=== PATIENT | male | born 1965 | race Caucasian/White ===

== ENCOUNTER 2019-09-12 06:16 | Day surgery (SDC) | payer OTHER, SELFPAY ==
[2019-09-12 06:25] VITALS: BP 143/86; PULSE 89; RESP 17; TEMP 36.1; O2SAT 97
[2019-09-12] MEDS: Lactated Ringers 1,000 ML 80 ML IV (06:48)
--- NOTE | 2019-09-12 07:26 | W.PM.HP.N ---
Date of service: 09/12/19 Time of Service: 07:26 Assessment and Plan Assessment and plan (1) Benign neoplasm of colon: Status: Acute Assessment and plan: I advised colonoscopy. The procedure was described including the risks of perforation with need for surgery or bleeding. Prep instructions discussed. Patient agrees to proceed. History of Present Illness Narrative: 53 y/o male with history of asthma presents for colonoscopy screening pre-op. His last screening was in 2013, which was remarkable for Tubular adenoma. He denies a family history of colon cancer. He denies any changes in bowel habits including bloody or black tarry stools, abdominal pain, diarrhea or constipation. He denies constitutional symptoms. Denies use of marijuana or any other recreational or illegal drugs. Of note he reports that he has diagnosed himself with Aspirin-Exacerbated Respiratory Disease. To help himself over come this, he has been taking 650mg of Aspirin BID. (Total of 1300mg of aspirin x day) Which he has been doing for the last 8-9 months. He denies any issues with easy bleeding or bruising. He denies chest pain, palpitations, dyspnea or dyspnea with exertion. He denies prior history or family history of adverse reactions or complications with anesthesia. Review of Systems Constitutional Constitutional: Denies fatigue and Denies headache(s) Eyes Eyes: Denies change in vision ENT Ears, Nose, Mouth, and Throat: Denies headache(s) and Denies neck mass Cardiovascular Cardiovascular: Denies chest pain, Denies edema, Denies palpitations and Denies dyspnea Respiratory Respiratory: Denies cough, Denies dyspnea and Denies wheezing Gastrointestinal Gastrointestinal: Denies abdominal pain, Denies hematochezia and Denies change in bowel habits Genitourinary Genitourinary: Denies dysuria Musculoskeletal Musculoskeletal: Denies joint swelling Integumentary/Breasts Skin/Breast: Denies new lesions and Denies rash Neurologic Neurologic: Denies confusion, Denies headache(s) and Denies focal weakness Psychiatric Psychiatric: Reports system reviewed and no additional complaints, except as docu and Denies confusion Endocrine Endocrine: Denies fatigue and Denies palpitations Hematologic/Lymphatic Hematologic/Lymphatic: Denies easy bleeding and Denies lymphadenopathy Allergic/Immunologic Allergic/Immunologic: Denies wheezing [facility] Medical History Asthma (Chronic) Surgical History Appendectomy History of colonoscopy (Chronic) Vasectomy Family History Mother No problems noted. Other Macular degeneration, dry Social History Smoking/Tobacco Use Status: Never Alcohol Intake: current Alcohol Intake frequency: 0-2 drinks per day Alcohol type: hard liquor Drug use: Never Substance use type: does not use Household members: none Housing: house Number of Children: 2 Pets and animals: Yes Pets and animals: dog(s) Current gender identity: male What is your relationship status?: Panel score (0-1 are the most socially isolated patients): 0 What type of physical activity do you participate in: walking Duration: 15-30 minutes/day Frequency: 5-6 times per week Seatbelt use: always Working smoke detector in home: Yes Fire extinguisher in home: Yes Carbon monox detector in home: Yes Do you feel safe at home: Yes Do you feel safe in your relationship?: Yes Meds Home Medications and Allergies Home Medications Medication Instructions Recorded Confirmed Type cetirizine 10 mg PO BID tab-cap 03/27/17 09/12/19 History budesonide-formoterol HFA 160 2 puff INHALATION BID #3 inhaler 03/04/19 09/12/19 Rx mcg-4.5 mcg/actuation aerosol inhaler albuterol sulfate 90 mcg/actuation 1 - 2 puff INHALATION Q6H PRN #3 05/13/19 09/12/19 Rx aerosol inhaler units montelukast 10 mg tablet 10 mg PO BID #180 tab 05/13/19 09/12/19 Rx aspirin 325 mg tablet 650 mg PO DAILY tab 08/07/19 09/12/19 History bisacodyl 5 mg tablet,delayed 5 mg PO ONCE #4 tab 08/07/19 09/12/19 Rx release polyethylene glycol 3350 17 238 g PO ONCE #238 gm 08/07/19 09/12/19 Rx gram/dose oral powder fluticasone propionate [Flonase 1 spray INTRANASAL BID 09/10/19 09/12/19 History Allergy Relief] Allergies Allergy/AdvReac Type Severity Reaction Status Date / Time NSAIDS (Non-Steroidal Allergy Severe Other (See Verified 09/12/19 06:47 Anti-Inflamma Comment) seasonal allergies Allergy Uncoded 09/12/19 06:47 Exam Const General: healthy appearing and not in acute distress Nutritional Appearance: well nourished Orientation: oriented x3 [facility] Head: normal to inspection Eyes Sclera: sclerae normal Pupils: PERRL Neck Neck: no lymphadenopathy Thyroid: thyroid normal Carotids: no bruits Lymphatic: no lymphadenopathy noted Chest Breast inspection: normal inspection of the axillae Resp Effort & Inspection: normal respiratory effort Auscultation: clear to auscultation bilaterally and no wheezes Cardio Rate: regular rate Rhythm: regular rhythm Pulses: dorsalis pedis pulses present GI Inspection: non-distended Palpation: soft, no hepatosplenomegaly, no hernias and nontender Skin General skin exam: no rashes or lesions noted Neuro General: alert Cognition: normal cognition Extrem General: normal to inspection Psych Affect: normal affect Attitude: cooperative Results Last Vital Signs Temp 97.0 F L 09/12/19 06:25 Pulse 89 09/12/19 06:25 Resp 17 09/12/19 06:25 BP 143/86 H 09/12/19 06:25 Pulse Ox 97 09/12/19 06:25
--- NOTE | 2019-09-12 08:10 | W.PM.DSUDISC ---
Discharge Plan Disposition Patient Disposition: HOME Condition: Good Discharge Details Reason For Visit: Colonoscopy Attending Provider: Sara Sweet Primary Care Provider: Rosanna Blanco Home Meds and New Rx's Prescriptions: Continued montelukast 10 mg tablet 10 mg PO BID Qty: 180 RF: 3 albuterol sulfate [Proventil HFA] 90 mcg/actuation HFA aerosol inhaler 1 - 2 puff Inhalation Q6H PRN Qty: 3 RF: 3 aspirin 325 mg tablet 650 mg PO DAILY RF: 0 cetirizine 10 MG tablet 10 mg PO BID RF: 0 Symbicort 160-4.5 mcg/actuation HFA aerosol inhaler 2 puff Inhalation BID Qty: 3 RF: 3 fluticasone propionate [Flonase Allergy Relief] 50 mcg/actuation [place],Suspension 1 spray INTRANASAL BID RF: 0 Discontinued polyethylene glycol 3350 17 gram/dose powder 238 g PO ONCE Qty: 238 RF: 0 bisacodyl [Dulcolax (bisacodyl)] 5 mg tablet,delayed release (DR/EC) 5 mg PO ONCE Qty: 4 RF: 0 Discharge Instructions Additional Instructions: Findings: Your colonoscopy showed diverticulosis. Follow up: Plan for colonoscopy in 5-7 years or sooner if symptoms arise. Please call if you develop: fevers >101.5 Nausea or Vomiting Abdominal pain that is not transient DAY SURGERY UNIT POST COLONOSCOPY INSTRUCTIONS 1. Because there will be medication in your system for the next 24 hours, you may feel a little sleepy. Your coordination will be affected. Therefore: a. Do not drive or operate dangerous equipment for 24 hours. b. Do not drink alcohol beverages for 24 hours (not even beer). c. Plan to go home and rest for the day. 2. Generally there are no restrictions on your activity after a day or so has gone by, but you may feel a bit fatigued for a few days. 3 After you arrive home you may have a light meal and return to a normal diet as you can tolerate it without feeling sick to your stomach. 4. After surgery, you may feel pain or discomfort. This should be only transient, but if it persists please contact your doctor. 5. If there are any questions regarding the findings of your procedure, please feel free to contact your doctor. 6. If you are unable to contact your doctor with a problem, contact the hospital at [phone]. 7. Continue all your regular medications unless directed otherwise. I understand the above instructions and have no questions. Signature of Patient or Responsible Adult Escort Date/Time Name of Responsible Adult Escort Signature of Nurse Date/Time Activity:: Activity as Tolerated Diet:: As Tolerated Discharge Orders Discharge Orders: Discharge Order (Routine); Ordered 09/12/19 Ordered By: Sara Sweet DS: Diagnosis Discharge Diagnosis (1) Benign neoplasm of colon: Status: Acute (2) Diverticulosis: Status: Acute
[2019-09-12 08:36] VITALS: BP 128/86; PULSE 73; RESP 17; TEMP 36.3; O2SAT 96
--- NOTE | 2019-09-12 11:10 | COLE_ITS ---
DATE OF PROCEDURE: September 12, 2019 PREOPERATIVE DIAGNOSIS: History of colon polyps. POSTOPERATIVE DIAGNOSIS: Mild diverticulosis. PROCEDURE: Colonoscopy. SURGEON: Sara Sweet M.D. ANESTHESIA: General. INDICATIONS: This is a 54-year-old man whose last screening colonoscopy in 2013 showed a tubular lorie noma. He is asymptomatic and has no family history of colon cancer. PROCEDURE: He was placed in the left Tiwari position. Propofol was titrated to sedation. Digital rec will examination revealed no abnormalities. The scope was advanced to the cecum without difficulty. The ileocecal valve and appendiceal orifice were clearly identified. His prep was excellent. The sc ope was slowly withdrawn with no abnormalities seen within the ascending, transverse or descending co shiva. In the sigmoid region he had mild diverticular change. The rectum was normal, including on ret roflex view. He tolerated the procedure well and was stable to recovery. With his history of polyps he should have a colonoscopy again in 5 to 7 years. cc: Rosanna Blanco M.D.
== END 2019-09-12 08:53 | disposition home or self-care (01) ==
PROVIDERS: PCP Internal Medicine; Visit Provider Surgery
PROC: 0DJD8ZZ Inspection of Lower Intestinal Tract, Via Natural or Artificial Opening Endoscopic (ICD-10-PCS; CPT 45378; principal; 2019-09-12 07:30)
DX: Z12.11 Encounter for screening for malignant neoplasm of colon (principal); K57.30 Diverticulosis of large intestine without perforation or abscess without bleeding; Z86.010 Personal history of colon polyps
CPT/HCPCS: 45378; NC

== ENCOUNTER 2022-01-05 02:55 | Outpatient (CLI) | payer OTHER, SELFPAY ==
[2022-01-05 11:23] LABS: Calculated LDL 118 mg/dL (<100); Cholesterol 180 mg/dL (<200); HDL Cholesterol 53 mg/dL (40-60); Triglyceride 49 mg/dL (<150)
[2022-01-06 10:28] LABS: Hepatitis C Ab w Rflx HCV PCR Negative (Negative)
== END 2022-01-05 02:56 | disposition home or self-care (01) ==
LOC: LBO 02:55
PROVIDERS: PCP Internal Medicine; Visit Provider Internal Medicine
DX: Z13.220 Encounter for screening for lipoid disorders (principal); Z11.59 Encounter for screening for other viral diseases
CPT/HCPCS: 36415; 80061; 86803

== ENCOUNTER 2023-06-26 03:52 | Outpatient (CLI) | payer OTHER, SELFPAY ==
[2023-06-26 08:35] LABS: Abs Immature Grans 0.04 10^3/uL (0.0-0.06); HGB 13.5 g/dL (13.5-17.5); MCH 31.1 pg (27.0-33.0); MCHC 32.1 % (32.0-36.0); MCV 97 fL (80-95); MPV 9.1 fL (8.0-11.0); Platelet Count 297 10^3/uL (130-400); RBC 4.34 10^6/uL (4.36-5.78); RDW 11.9 % (11.8-14.1); RDW-SD 42.5 fL
[2023-06-26 08:57] LABS: Absolute Basophil Count 0.08 10^3/uL (0.0-0.2); Absolute Eosinophil Count 0.24 10^3/uL (0.0-0.7); Absolute Lymphocyte Count 2.92 10^3/uL (1.2-3.4); Absolute Monocyte Count 0.32 10^3/uL (0.1-0.8); Absolute Neutrophil Count 4.35 10^3/uL (1.2-6.7); Atypical Lymphocytes % 0; Bands % 0; Diff Comment Manual Differential; RBC Morphology Normal
[2023-06-26 09:17] LABS: ALT 23 U/L (16-63); AST 11 U/L (15-37); Albumin 3.3 g/dL (3.4-5.0); Alkaline Phosphatase 60 U/L (46-116); Anion Gap 7.4 mmol/L (3-11); BUN 20 mg/dL (7-18); Bilirubin, Total 0.3 mg/dL (0.2-1.0); CO2 29.6 mmol/L (21.0-32.0); CREATININE 1.1 mg/dL (0.70-1.30); Calcium 8.6 mg/dL (8.5-10.1); Calculated LDL 120 mg/dL (<100); Chloride 106 mmol/L (98-107); Cholesterol 176 mg/dL (<200); Estimated GFR 77.81 (mL/min/1.73m2); Glucose 103 mg/dL (74-106); HDL Cholesterol 33 mg/dL (40-60); Potassium 4.2 mmol/L (3.5-5.1); Sodium 143 mmol/L (136-145); Total Protein 6.7 g/dL (6.4-8.2); Triglyceride 119 mg/dL (<150)
== END 2023-06-26 03:53 | disposition home or self-care (01) ==
LOC: LBO 03:52
PROVIDERS: PCP Nurse Practitioner; Visit Provider Nurse Practitioner
DX: E78.5 Hyperlipidemia, unspecified (principal); J45.40 Moderate persistent asthma, uncomplicated
CPT/HCPCS: 36415; 80053; 80061; 85025

== ENCOUNTER 2024-03-18 05:55 | Outpatient (CLI) | payer OTHER, SELFPAY ==
[2024-03-18 10:53] LABS: ESR 4 mm/hr (0-20)
[2024-03-18 17:23] LABS: Rheumatoid Factor <8.6 IU/mL (<12.0)
[2024-03-19 08:42] LABS: Cyclic Citrullinated Peptide <2.5 U/mL (<5.0)
[2024-03-19 09:13] LABS: Lyme Ab w Rflx to Lyme Confirm Positive (Negative)
[2024-03-19 11:09] LABS: Lyme IgG Ab Positive (Negative); Lyme IgM Ab Positive (Negative)
[2024-03-19 14:12] LABS: ANA Interpretation Negative (Negative)
[2024-03-20 13:43] LABS: Anaplasma phagocytophilum Negative (Negative); B. miyamotoi PCR Negative (Negative); Babesia divergens/MO-1 Negative (Negative); Babesia duncani Negative (Negative); Babesia microti Negative (Negative); Ehrlichia chaffeensis Negative (Negative); Ehrlichia ewingii/canis Negative (Negative); Ehrlichia muris eauclairensis Negative (Negative)
== END 2024-03-18 05:56 | disposition home or self-care (01) ==
LOC: LBO 05:55
PROVIDERS: PCP Nurse Practitioner; Visit Provider Nurse Practitioner
DX: M25.59 Pain in other specified joint (principal)
CPT/HCPCS: 36415; 85652; 86200; 86617; 87798; 86038; 86140; 86431; 86618

== ENCOUNTER 2024-10-03 12:12 | Day surgery (SDC) | payer OTHER, SELFPAY ==
--- NOTE | 2024-10-02 20:33 | W.COLOREPORT ---
Date of service: 10/03/24 Time of Service: 15:36 Colonoscopy Report Date of procedure: 10/03/24 Pre-op diagnosis general: T. adenoma in 2014/divertic Post-op diagnosis procedure note: other Surgeon: Rosanna Alcaal Anesthesia Type: General:No Airway Estimated blood loss (mL): 3 Pathology: other Complications: None Disposition: same day Prep: Miralax/Dulcolax Retraction Time: 32 Procedure Description: After informed consent was obtained, explaining risks of the procedure, including but not limits to: bleeding, infections, complications of anesthesia, perforations (which may require antibiotics and /or surgery and stay in the hospital), and abdominal pain/cramping. The patient was taken to the procedure room and placed in a left decubitous position. Monitors were applied and a time out was done. The patients name, date of , procedure, allergies to medications and metal in their body was reviewed. The patient was then sedated. Once sedated and comfortable a rectal exam was done. External exam was normal. Internal exam revealed a normal sphincter tone and no palpable masses. The prostate no masses palpated today. The previously lubricated Olympus scope was then introduced (see RN notes for scope number) and retrofelexed. No internal hemorrhoids were identified. The scope was then advanced to the cecum without difficulty. The TI and appendiceal orifice were identified. The scope was then slowly retracted over minutes back into the rectum. Polyps: He has 3 flat polyps in the cecum. 1 is 1 cm in size and is removed with a cold snare. A clip was placed across the defect. Another is 0.75 cm in size and flat. This is removed with a cold biting forcep. A third is 0.5 cm in size and flat and was removed with cold biting forcep. A flat, .75cm polyp was found at 70cm. This was removed with a cold snare. A flat, .5cm polyp was found at 40cm.. All of the specimen was retrieved. This will be sent to pathology. There is no bleeding noted from the polypectomy site. Diverticula: pt had a moderate amount of small mouthed diverticula in the sigmoid colon. There were no signs of active bleeding or infection. The mucosa is pink and healthy w/ a normal vascular pattern. The scope was removed, and the patient was woken up and taken back to Same day surgery in stable condition. The prep is also quite poor, so any lesions less than 5 mm may have been missed. The patient tolerated the procedure well and there were no immediate complications. Follow up: The patient should follow up in 3-5years, path pd, unless they develop changes in bowel habits or other new gastrointestinal complaints. [place] Bowel Prep [place] Bowel Prep Right Colon: 1 Left Colon: 2 Transverse Colon: 1 Total Score: 4
--- NOTE | 2024-10-02 20:34 | PDOC.DSDIS_ITS ---
Date of service: 10/03/24 Time of Service: 15:37 Discharge Plan Disposition Patient Disposition: Home Condition: Good Discharge Details Reason For Visit: colon scope Attending Provider: Rosanna Alcala Primary Care Provider: Shy Del Valle Home Meds and New Rx's Prescriptions: Continued albuterol sulfate 90 mcg/actuation HFA aerosol inhaler 1 - 2 puff Inhalation Q6H PRN Qty: 1 12RF Rx Instructions: use as needed for shortness of breath cetirizine 10 MG tablet 10 mg PO BID fluticasone propionate [Flonase Allergy Relief] 50 mcg/actuation spray,suspension 1 spray INTRANASAL BID Qty: 9.9 1RF Qvar RediHaler 80 mcg/actuation HFA aerosol breath activated 1 inh inhalation BID Qty: 3 3RF Rx Instructions: May increase to 2 inhalations BID during allergy season. Rinse mouth after use. montelukast 10 mg tablet 10 mg PO DAILY Qty: 90 3RF Discontinued bisacodyl [Dulcolax (bisacodyl)] 5 mg tablet,delayed release (DR/EC) 5 mg PO ONCE Qty: 4 0RF Rx Instructions: Take per colonoscopy instructions provided by ordering providers office polyethylene glycol 3350 17 gram/dose powder 17 g PO ONCE Qty: 238 0RF Rx Instructions: Take per colonoscopy instructions provided by ordering providers office Discharge Instructions Additional Instructions: DSU Colonoscopy Post- Op Instructions Instructions for Everyone who is given Anesthesia: For your safety, please do the following for the next twenty-four (24) hours: *Do Not operate a motor vehicle (car, truck, motorcycle, etc.) *Do Not drink alcoholic beverages or use any recreational drugs for the first 24 hours or while taking pain medications. The medications in your body may have a reaction that can be dangerous. *Do Not make any important decisions or sign any important papers. Findings: Multiple polyps and diverticula -Make sure you are moving your bowels on a regular basis and not straining. If you are having problems with constipation or straining to move your bowels and we recommend you start a fiber product daily such as Metamucil Follow up: My office will send you a letter in 2 to 3 weeks time with the results of the polyps and when we want to you to repeat the colonoscopy, most likely 3 to 5 years time. 1. No lifting over 20 pounds or strenuous activity for the first 24 hours after your procedure. After 24 hours there are no restrictions on your activity but you may feel fatigued for a few days. 2. After you arrive home you may have a light meal and return to your normal diet as you can tolerate it without feeling sick to your stomach. 3. You may have a bloated, gaseous feeling in your belly (abdomen) after a colonoscopy. Passing gas and belching will help. Walking or lying down on your left side with your knees flexed may relieve the discomfort. Call the office at [phone] (Office) or [phone] (Hospital) right away if you notice any of the following: a.Vomiting of blood or ?coffee ground stools?. b.Rectal bleeding 1Tbsp, blood clots or continuous bleeding. c.Severe belly (abdominal) pain. d.A hard distended belly (abdomen) and an inability to pass gas. 4. Please don?t expect to have a normal BM (bowel movement) for 2-3 days after your procedure. 5. If there are questions regarding the findings of your procedure, please contact your doctor 6. If you are unable to contact your doctor with a problem, contact the hospital at [phone]. 7. Continue all your regular medications unless directed otherwise. I understand the above instructions and have no questions. Signature of Patient or Adult Escort Name of Responsible Adult Escort Signature of Nurse Date/Time Stand Alone Forms: Anesthesia Discharge , Kin Ahumada (DSU) Activity:: see sbove Diet:: see above Discharge Orders Discharge Orders: Discharge Order (Routine); Ordered 10/03/24 Ordered By: Rosanna Alcala DS: Diagnosis Discharge Diagnosis (1) Elevated blood pressure reading: Status: Acute (2) Diverticulosis: Status: Acute (3) Benign neoplasm of colon: Status: Acute Asessment and Plan: The patient is seen and examined after their colonoscopy.? The patient has been able to pass gas.? They are not having abdominal pain.? They have been able to tolerate liquids and a snack.? They do not have any nausea or vomiting.? They are not having any chest pain or shortness of breath.??? They are not having any rectal bleeding. Their vital signs have been stable-see nursing notes. We discussed findings during their colonoscopy, and any biopsies that were done/polyps that were removed. The patient will be sent a letter with any biopsy results, and when to repeat the colonoscopy.-see discharge instructions. Patient was given explicit instructions to follow-up regarding colonoscopy-refer to discharge instructions.? We reviewed resumption of medications. Patient verbalized understanding and discharged in stable and satisfactory condition- See nursing notes. (4) Aspirin-exacerbated respiratory disease (AERD): Status: Acute (5) Moderate persistent asthma, uncomplicated: Status: Acute
[2024-10-03 12:26] VITALS: BP 134/80; PULSE 71; RESP 18; TEMP 36.6; O2SAT 96
[2024-10-03] MEDS: Normal Saline Flush 10 ML SYR IV (12:43)
--- NOTE | 2024-10-03 13:05 | ANES.PREOP_ITS ---
General Info Date of Service Date Performed: 10/03/24 Height: 5 ft 11 in Weight: 89.8 kg Body Mass Index (BMI): 27.6 Surgical Procedure: Operation Date: 10/03/24 12:35 Proposed Procedure Side Surgeon galdino Alcala, DO Meds Allergies and Home Medications Allergies Allergy/AdvReac Type Severity Reaction Status Date / Time NSAIDS (Non-Steroidal Allergy Severe Asthma Verified 10/03/24 12:24 Anti-Inflamma attack, GI pain, hives seasonal allergies Allergy Intermediate hay fever Uncoded 10/03/24 12:24 Home Medication ?Medication ?Instructions ?Recorded cetirizine 10 mg tablet 10 mg PO BID 03/27/17 fluticasone propionate 50 1 spray intranasal BID #9.9 mL 11/10/19 mcg/actuation nasal spray,suspension (Flonase Allergy Relief) beclomethasone dipropionate 80 1 inh inhalation BID #3 units 06/12/24 mcg/actuation HFA breath activated aerosol (Qvar RediHaler) montelukast 10 mg tablet 10 mg PO DAILY #90 tabs 06/12/24 albuterol sulfate 90 mcg/actuation 1 - 2 puff inhalation Q6H PRN #1 08/26/24 aerosol inhaler units Current Visit Medications: Current Medications Generic Name Dose Route Start Last Admin Trade Name Freq PRN Reason Stop Dose Admin Hyoscyamine Sulfate 0.125 mg 10/03/24 08:38 Hyoscyamine 0.125 Mg Sl/Oral/Chew SL 11/02/24 08:37 DIRECTED PRN IV Miscellaneous Supplies 1 each 10/03/24 06:00 Iv Access IV 10/03/24 23:59 DIRECTED ANNALISA Ondansetron HCl 4 mg 10/03/24 08:38 Ondansetron 4 Mg/2 Ml Vial IVP 11/02/24 08:37 Q4H PRN PRN Nausea / Vomiting Sodium Chloride 0 ml 10/03/24 06:00 10/03/24 12:43 Normal Saline Flush 10 Ml Syr IV 10/03/24 23:59 10 ml PRN PRN Administration Sodium Chloride 0 ml 10/03/24 06:00 Normal Saline 10 Ml Vial IJ 10/03/24 23:59 DIRECTED PRN Sterile Water 0 ml 10/03/24 06:00 Water,Injection,Sterile 10 Ml Vial IJ 10/03/24 23:59 DIRECTED PRN PFSH Active Problems Active Problems: Problem Status Onset Code Aspirin-exacerbated respiratory disease (AERD) Acute J45.909, J33.9, Z88.6 Moderate persistent asthma, uncomplicated Acute J45.40 Anosmia Acute R43.0 Diverticulosis Acute K57.90 Allergic rhinitis due to pollen Acute 01/30/18 J30.1 Benign neoplasm of colon Acute 10/02/14 D12.6 Chronic allergic rhinitis Acute 08/07/17 J30.9 Chronic rhinitis Acute 12/24/17 J31.0 Elevated blood pressure reading Acute 11/21/16 R03.0 Postnasal drip Acute 12/24/17 R09.82 Unspecified asthma, uncomplicated Acute 10/31/16 J45.909 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, J33.9, Z88.6 Medical History Medical History Asthma Surgical History Surgical History History of colonoscopy Vasectomy Appendectomy Tobacco Smoking/Tobacco Use Status: Never Alcohol Alcohol Intake: current Alcohol intake frequency: 0-2 drinks per day Substance Use Substance use: Daily Substance use type: marijuana Details: Consumes edibles daily Vital Signs and Lab Results Vital Signs Most Recent Vital Signs in EMR: Most Recent Vital Signs Temp Pulse Resp BP Pulse Ox 36.6 C 71 18 134/80 96 10/03/24 12:26 10/03/24 12:26 10/03/24 12:26 10/03/24 12:26 10/03/24 12:26 Lab Results Blood Type / Crossmatch: No Data to Display Complete Blood Count: No Data to Display Complete Metabolic Panel: No Data to Display Liver Function Panel: No Data to Display Coagulation Panel: No Data to Display Cardiac Panel: No Data to Display Arterial Blood Gas: No Data to Display Venous Blood Gas: No Data to Display Pancreas Panel: No Data to Display Thyroid Panel: No Data to Display Infectious Disease: No Data to Display Blood Cultures: No Data to Display Toxicology Panel: No Data to Display Imaging and Studies Imaging and Studies Study information below may be from another EMR and interpreted by another provider. Please see original notes in EMR for more complete details. Pulmonary Function Summary: 11/06/16: IMPRESSION: Overall mild obstructive airways disease with no significant bronchodilator response. The pre- bronchodilator effort was extremely poor therefore the significance of that finding is questionable. However even on the postbronchodilator spirometry the patient continues to have evidence of mild obstructive airways disease. Therefore clinical correlation is recommended. Anesthesia Assessment and Plan Anesthesia History Personal History: No History of Anesthesia Complications Family History: No Family History of Anesthesia Complications Exercise Tolerance Exercise Tolerance: Metabolic Equivalents>4 Pertinent Negatives Pertinent Negatives: No Symptoms of GERD, No Major Cardiovascular Symptoms or Complaints and No Major Pulmonary Symptoms or Complaints Cardiac & Pulmonary Exam Cardiac Exam: Normal S1/S2 Heart Sounds Pulmonary Exam: Clear Bilateral Breath Sounds Implantable Cardiac Device Does patient have a Pacemaker or an ICD?: No Airway Exam Known Difficult Airway: No Mallampati Class: 2 Mouth Opening: Normal (> 3cm) Thyromental Distance: Greater than 3 cm Facial Hair: Full Trejo Neck Range of Motion: Full ROM Neck Circumference: Normal Teeth Condition: Normal Dentition ASA Classification ASA Score: ASA 2 Emergency Case?: No NPO Status NPO Status: NPO Clears >2 hours, Solids >8 hours Anesthesia Plan Resuscitation Status: Full Code Anesthesia Technique: General Anesthesia Airway Planned: Natural Airway Monitors Used: Standard Monitors
[2024-10-03 13:08] VITALS: BMI 27.6
[2024-10-03] MEDS: Normal Saline Flush 10 ML SYR (13:32)
--- NOTE | 2024-10-03 13:33 | BOWEL_PTH ---
PATIENT: Johnathan Montana LOC: [facility] U#:[id number] AGE/SX: 59/M ROOM: RE10/03/[address]: Rosanna Alcala : 1965 BED: DIS: 10/03/2024 SPEC #: [id number] RECD: 10/03/24 17:57 STATUS: NI RE #: [id number] CRISTINA: 10/03/24 13:[address]: Rosanna Alcala DEPT: Surgical Specimen RECD BY: Doris Mckeon ENTERED: 10/03/24 17:59 SP TYPE: Bowel OTHR DR: Shy Del Valle APRN Tissues: 1 - BIOPSY BOWEL 2 - BIOPSY BOWEL 3 - BIOPSY BOWEL 4 - BIOPSY BOWEL Procedures: GROSS AND MICRO LEVEL 4 Comments: [id number]
[2024-10-03 14:11] VITALS: BP 122/81; PULSE 73; RESP 16; TEMP 36.1; O2SAT 96
--- NOTE | 2024-10-03 14:41 | W.ANESPOSTOP ---
Postoperative Evaluation Date, Time and Location Date Performed: 10/03/24 Time Performed: 14:12 Patient Location: Day Surgery Unit Vital Signs Most Recent Imported Vital Signs: Most Recent Vital Signs Temp Pulse Resp BP Pulse Ox 36.1 C L 73 16 122/81 96 10/03/24 14:11 10/03/24 14:11 10/03/24 14:11 10/03/24 14:11 10/03/24 14:11 Pain Score Most Recent Pain Score: Most Recent Pain Score Pain Level 0 10/03/24 14:11 Assessment Mental Status: Awake (Alert & Oriented to Patient Baseline) Airway and Respiratory Function: Patent airway with normal (patient baseline) respiratory exam Cardiovascular Function: Hemodynamically Stable Hydration Status: Adequately Hydrated Nausea & Vomiting: No Nausea or Vomiting Pain: Pt. Denies Any Pain Peripheral Nerve Block: Patient did not receive a nerve block
[2024-10-03 14:46] VITALS: BP 118/84; PULSE 66; RESP 16; TEMP 36.2; O2SAT 99
== END 2024-10-03 15:59 | disposition home or self-care (01) ==
LOC: SUR 12:12
PROVIDERS: PCP Nurse Practitioner; Visit Provider Surgery
PROC: 0DJD8ZZ Inspection of Lower Intestinal Tract, Via Natural or Artificial Opening Endoscopic (ICD-10-PCS; CPT 45378; principal; 2024-10-03 12:30)
DX: Z12.11 Encounter for screening for malignant neoplasm of colon (principal); K57.30 Diverticulosis of large intestine without perforation or abscess without bleeding; D12.0 Benign neoplasm of cecum; D12.5 Benign neoplasm of sigmoid colon
CPT/HCPCS: 45385; 45380; 88305; J2704

== ENCOUNTER 2025-03-19 13:05 | Outpatient (CLI) | payer OTHER, SELFPAY ==
--- NOTE | 2025-03-19 13:00 | RT.EKG_ITS ---
APPROVED REPORT Exam: Resting ECG Reason for Exam: Preop exam Patient Location: O HR:65 bpm ECG Measurements Heart Rate 65 AXIS SC 159 P 23 QRSd 102 QRS 59 QT 415 T 10 QTc 432 Conclusion Sinus rhythm...normal P axis, V-rate 50- 99 Probable left atrial enlargement...P >50mS, <-0.10mV V1 Abnormal R-wave progression, early transition...QRS area>0 in V2
== END 2025-03-19 13:06 | disposition home or self-care (01) ==
LOC: DI.KIM 13:05
PROVIDERS: PCP Nurse Practitioner; Visit Provider Family Medicine
DX: Z01.818 Encounter for other preprocedural examination (principal); I51.7 Cardiomegaly
CPT/HCPCS: 93010

== ENCOUNTER 2025-03-19 14:00 | Outpatient (CLI) | payer OTHER, SELFPAY ==
[2025-03-19 14:02] LABS: Abs Immature Grans 0.01 10^3/uL (0.0-0.06); Absolute Basophil Count 0.04 10^3/uL (0.0-0.2); Absolute Eosinophil Count 0.89 10^3/uL (0.0-0.7); Absolute Lymphocyte Count 2.45 10^3/uL (1.2-3.4); Absolute Monocyte Count 0.64 10^3/uL (0.1-0.8); Absolute Neutrophil Count 3.49 10^3/uL (1.2-6.7); Basophils % 0.5 %; Eosinophils % 11.8 %; HCT 46.2 % (40.0-50.0); HGB 14.9 g/dL (13.5-17.5); Immature Grans % 0.1 %; Lymphocytes % 32.6 %; MCH 30.5 pg (27.0-33.0); MCHC 32.3 % (32.0-36.0); MCV 95 fL (80-95); MPV 10.3 fL (8.0-11.0); Monocytes % 8.5 %; Neutrophils % 46.5 %; Platelet Count 199 10^3/uL (130-400); RBC 4.88 10^6/uL (4.36-5.78); RDW 13.5 % (11.8-14.1); RDW-SD 47.2 fL; WBC 7.52 10^3/uL (4.4-10.8)
[2025-03-19 14:04] LABS: Bilirubin Negative (Negative); Blood Negative (Negative); Clarity Clear (Clear); Glucose Negative (Negative); Ketones Negative (Negative); Leukocyte Esterase Negative (Negative); Nitrite Negative (Negative); Specific Gravity 1.025 (1.005-1.025); Urobilinogen 0.2 mg/dL (Up to 0.2)
[2025-03-19 14:26] LABS: Hemoglobin A1C 5.6 % (<5.7)
[2025-03-19 14:53] LABS: ALT 31 U/L (16-63); AST 21 U/L (15-37); Albumin 3.7 g/dL (3.4-5.0); Alkaline Phosphatase 75 U/L (46-116); Anion Gap 7.6 mmol/L (3-11); BUN 20 mg/dL (7-18); Bilirubin, Total 0.4 mg/dL (0.2-1.0); CO2 29.4 mmol/L (21.0-32.0); CREATININE 1.1 mg/dL (0.70-1.30); Calcium 9.1 mg/dL (8.5-10.1); Calculated LDL 110 mg/dL (<100); Chloride 107 mmol/L (98-107); Cholesterol 175 mg/dL (<200); Estimated GFR 76.85 (mL/min/1.73m2); Glucose 104 mg/dL (74-106); HDL Cholesterol 51 mg/dL (>or=40); Potassium 3.8 mmol/L (3.5-5.1); Sodium 144 mmol/L (136-145); TSH 1.92 uIU/mL (0.36-3.74); Total Protein 7.7 g/dL (6.4-8.2); Triglyceride 71 mg/dL (<150)
[2025-03-23 16:08] LABS: B.burgdorferi PCR, B Negative (Negative); B.garinii/B.afzelii PCR,B Negative (Negative); B.mayonii PCR, B Negative (Negative)
== END 2025-03-19 14:01 | disposition home or self-care (01) ==
LOC: LBO 14:07
PROVIDERS: Family Medicine; PCP Nurse Practitioner; Visit Provider Nurse Practitioner
DX: Z13.9 Encounter for screening, unspecified (principal); Z01.818 Encounter for other preprocedural examination
CPT/HCPCS: 36415; 80053; 80061; 84153; 87476; 87798; 81003; 83036; 84443; 85025

== ENCOUNTER 2025-05-06 07:56 | Outpatient (REF) | payer OTHER, SELFPAY ==
--- NOTE | 2025-05-06 07:30 | SKI_PTH ---
PATIENT: Johnathan Montana LOC: [facility] U#:[id number] AGE/SX: 59/M ROOM: RE05/06/[address]: Rizwan Monson MD : 1965 BED: DIS: 05/06/2025 SPEC #: [id number] RECD: 05/06/25 12:39 STATUS: NI REQ #: [id number] CRISTINA: 05/06/25 07:[address]: Rizwan Monson DEPT: Surgical Specimen RECD BY: Doris Mckeon ENTERED: 05/06/25 12:40 SP TYPE: KIMBERLEE JUNIOR DR: Shy Del Valle APRN Tissues: 1 - SKIN BIOPSY(SHAVE/PUNCH) Procedures: SKIN LEVEL 4 Comments:
== END 2025-05-06 07:57 | disposition home or self-care (01) ==
LOC: LBN 07:56
PROVIDERS: PCP Nurse Practitioner; Visit Provider Otolaryngology
DX: C44.41 Basal cell carcinoma of skin of scalp and neck (principal); L98.9 Disorder of the skin and subcutaneous tissue, unspecified
CPT/HCPCS: 88305

== ENCOUNTER 2025-06-29 06:35 | Day surgery (SDC) | payer OTHER, SELFPAY ==
[2025-06-29] VITALS (14 sets, daily range): BP systolic 126–140; BP diastolic 67–84; PULSE 60–65; RESP 14–22; TEMP 35.9–36.5; O2SAT 94–99; BMI 28.3
[2025-06-29] MEDS: Lactated Ringers 1,000 ML 80 ML IV (07:19)
--- NOTE | 2025-06-29 07:27 | ANES.PREOP_ITS ---
General Info Date of Service Date Performed: 06/29/25 Height: 5 ft 10 in Weight: 89.4 kg Body Mass Index (BMI): 28.3 Surgical Procedure: Operation Date: 06/29/25 08:10 Proposed Procedure Side Surgeon p Cholecystectomy Laparoscopic Steffanie Ellison MD Meds Allergies and Home Medications Allergies Allergy/AdvReac Type Severity Reaction Status Date / Time NSAIDS (Non-Steroidal Allergy Severe Asthma Verified 06/29/25 06:56 Anti-Inflamma attack, GI pain, hives Home Medication ?Medication ?Instructions ?Recorded cetirizine 10 mg tablet 10 mg PO BID 03/27/17 albuterol sulfate 90 mcg/actuation 1 - 2 puff inhalati on Q6H PRN #1 08/26/24 aerosol inhaler units beclomethasone dipropionate 80 See Rx Instructions .Ro martha 12/01/24 mcg/actuation HFA breath activated .COMPLEX #31.8 gram s aerosol (Qvar RediHaler) guaifenesin 200 mg tablet 200 mg PO DAILY 12/18/24 montelukast 10 mg tablet 10 mg PO BID #180 tabs 12/18 acetaminophen 325 mg tablet 975 mg PO BID PRN 06/03/25 aspirin 325 mg capsule 650 mg PO BID 06/25/25 Current Visit Medications: Current Medications Generic Name Dose Route Start Last Admin Trade Name Freq PRN Reason Stop Dose Admin Ringer's Solution 1,000 mls @ 80 mls/hr 06/29/25 06:00 06/29/25 07:19 IV 06/29/25 23:59 80 mls/hr INFUSION ANNALISA Administration Cefazolin Sodium/Dextrose 2 gm in 50 mls @ 100 mls/hr 06/29/25 06:00 Ancef Duplex IVPB 06/29/25 23:59 PREOP ANNALISA IV Miscellaneous Supplies 1 each 06/29/25 06:00 Iv Access IV 06/29/25 23:59 DIRECTED ANNALISA Sodium Chloride 0 ml 06/29/25 06:00 Normal Saline Flush 10 Ml Syr IV 06/29/25 23:59 PRN PRN Sodium Chloride 0 ml 06/29/25 06:00 Normal Saline 10 Ml Vial IJ 06/29/25 23:59 DIRECTED PRN Sterile Water 0 ml 06/29/25 06:00 Water,Injection,Sterile 10 Ml Vial IJ 06/29/25 23:59 DIRECTED PRN [facility] Active Problems Active Problems: Problem Status Onset Code Symptomatic cholelithiasis Acute K80.20 Cholelithiasis Acute K80.20 Skin lesion Acute L98.9 RUQ abdominal pain Acute R10.11 RUQ abdominal pain Acute R10.11 Encounter for preoperative assessment Acute Z01.818 Screening due Acute Z13.9 Elevated LDL cholesterol level Acute E78.00 Nasal obstruction Acute ~02/2025 J34.89 Chronic sinusitis Acute J32.9 Nasal polyposis Acute J33.9 Aspirin-exacerbated respiratory disease (AERD) Acute J45.909, J33.9, Z88.6 Moderate persistent asthma, uncomplicated Acute J45.40 Anosmia Acute R43.0 Diverticulosis Acute K57.90 Allergic rhinitis due to pollen Acute 01/30/18 J30.1 Benign neoplasm of colon Acute 10/02/14 D12.6 Chronic allergic rhinitis Acute 08/07/17 J30.9 Chronic rhinitis Acute 12/24/17 J31.0 Elevated blood pressure reading Acute 11/21/16 R03.0 Postnasal drip Acute 12/24/17 R09.82 Unspecified asthma, uncomplicated Acute 10/31/16 J45.909 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, 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.9, Z88.6 Medical History Medical History Lyme borreliosis Tubular adenoma of colon (~09/2024) Asthma Surgical History Surgical History H/O nasal septoplasty (~03/2025) S/P bilateral ESS with septoplasty 05/15/25 Nasal Endoscopy Status post functional endoscopic sinus surgery H/O nasal polypectomy (~03/2025) 03/26/25 and debridement Otolaryngology; 04/03/25 F/U at History of colonoscopy (~09/2024) Vasectomy Appendectomy Tobacco Smoking/Tobacco Use Status: Never Passive smoking exposure: No Alcohol Alcohol Intake: current Alcohol intake frequency: 0-2 drinks per day Alcohol type: beer Substance Use Substance use: Daily Substance use type: marijuana Details: Consumes edibles daily. Vital Signs and Lab Results Vital Signs Most Recent Vital Signs in EMR: Most Recent Vital Signs Temp Pulse Resp BP Pulse Ox 36.3 C L 63 14 140/84 97 06/29/25 06:59 06/29/25 06:59 06/29/25 06:59 06/29/25 06:59 06/29/25 06:59 Imaging and Studies Imaging and Studies Study information below may be from another EMR and interpreted by another provider. Please see original notes in EMR for more complete details. Pulmonary Function Summary: 11/06/16: IMPRESSION: Overall mild obstructive airways disease with no significant bronchodilator response. The pre- bronchodilator effort was extremely poor therefore the significance of that finding is questionable. However even on the postbronchodilator spirometry the patient continues to have evidence of mild obstructive airways disease. Therefore clinical correlation is recommended. Anesthesia Assessment and Plan Anesthesia History Personal History: No History of Anesthesia Complications Family History: No Family History of Anesthesia Complications Exercise Tolerance Exercise Tolerance: Metabolic Equivalents>4 Pertinent Negatives Pertinent Negatives: No Symptoms of GERD Cardiac & Pulmonary Exam Cardiac Exam: Normal S1/S2 Heart Sounds Pulmonary Exam: Clear Bilateral Breath Sounds Implantable Cardiac Device Does patient have a Pacemaker or an ICD?: No Airway Exam Known Difficult Airway: No Mallampati Class: 2 Mouth Opening: Normal (> 3cm) Thyromental Distance: Greater than 3 cm Neck Range of Motion: Full ROM Neck Circumference: Normal Teeth Condition: Normal Dentition ASA Classification ASA Score: ASA 2 Emergency Case?: No NPO Status NPO Status: NPO Clears >2 hours, Solids >8 hours Anesthesia Plan Resuscitation Status: Full Code Anesthesia Technique: General Anesthesia Airway Planned: Endotracheal Tube Monitors Used: Standard Monitors
--- NOTE | 2025-06-29 08:07 | W.PM.DSUDISC ---
Date of service: 06/29/25 Discharge Plan Disposition Patient Disposition: Home Condition: Stable Discharge Details Attending Provider: Steffanie Ellison Primary Care Provider: Robert Dia Recommendations for Follow Up Recommended tests to be ordered by follow up provider: None from this visit Home Meds and New Rx's Prescriptions: New hydrocodone-acetaminophen 5-325 mg tablet 1 tab PO Q6H PRN (Reason: pain) Qty: 8 0RF Continued albuterol sulfate 90 mcg/actuation HFA aerosol inhaler 1 - 2 puff Inhalation Q6H PRN Qty: 1 12RF Rx Instructions: use as needed for shortness of breath guaifenesin 200 mg tablet 200 mg PO DAILY montelukast 10 mg tablet 10 mg PO BID Qty: 180 3RF acetaminophen 325 mg tablet 975 mg PO BID PRN cetirizine 10 MG tablet 10 mg PO BID Qvar RediHaler 80 mcg/actuation HFA aerosol breath activated See Rx Instructions .ROUTE .COMPLEX Qty: 31.8 3RF Dose Instruction: INHALE ONE PUFF BY MOUTH TWICE A DAY, MAY INCREASE TO TWO PUFFS BY MOUTH TWICE A DAY DURING ALLERGY SEASON, RINSE MOUTH AFTER USE Rx Instructions: INHALE ONE PUFF BY MOUTH TWICE A DAY, MAY INCREASE TO TWO PUFFS BY MOUTH TWICE A DAY DURING ALLERGY SEASON, RINSE MOUTH AFTER USE aspirin 325 mg capsule 650 mg PO BID Patient Comments: Pt. states he was instructed by Dr. Ellison to just take one 325mg table for 7 days prior to lap beatris procedure. Discharge Instructions Additional Instructions: Shower in 48 hours. Wash gently over steri-strips with soapy hands, rinse, pat dry. Don't peel strips or submerge them under water. The longer they stay on, the nicer the scars will heal. Ok to walk, climb stairs, and resume normal activities of daily living. Do not lift/push/pull more than 20lb for 4 weeks. Diet as tolerated, allow your body to naturally make adjustments in the bile flow after surgery. Eat your normal diet. Loose stools may occur. We will discuss them at follow up if still present in 2 weeks. Call or return for fever or incisional problems. You did have more bleeding than normal because of the aspirin as we discussed in office. The bleeding was controlled. I expect some bruising and soreness for you during recovery. Referrals: Steffanie Ellison MD [ [facility] STAFF PHYSICIAN, Surgery] Referral Note: Follow up as scheduled Activity:: see above Shower/Bathe:: 48 hours Diet:: As Tolerated Discharge Orders Discharge Orders: Discharge Order (Routine); Ordered 06/29/25 Ordered By: Steffanie Ellison DS: Diagnosis Discharge Diagnosis (1) Symptomatic cholelithiasis: Status: Acute
[2025-06-29] MEDS: ceFAZolin 2 GM/50 ML BAG IVPB (08:10)
[2025-06-29] MEDS: Bupivacaine 0.5% Pres-Free W/EPI 30 ML VIAL (08:32)
--- NOTE | 2025-06-29 09:26 | GB_PTH ---
PATIENT: Johnathan Montana LOC: [facility] U#:[id number] AGE/SX: 59/M ROOM: RE06/29/[address]: Steffanie Ellison MD : 1965 BED: DIS: 06/29/2025 SPEC #: [id number] RECD: 06/29/25 12:53 STATUS: NI REQ #: [id number] CRISTINA: 06/29/25 09:[address]: Steffanie Ellison DEPT: Surgical Specimen RECD BY: Doris Mckeon ENTERED: 06/29/25 12:53 SP TYPE: GB OTHR DR: Robert Dia MD Tissues: 1 - GALLBLADDER Procedures: GROSS AND MICRO LEVEL 3 Comments: [id number]
--- NOTE | 2025-06-29 10:03 | ROE_ITS ---
Operative Note Operative Note PRE-OP DIAGNOSIS: symptomatic cholelithiasis POST-OP DIAGNOSIS: same PROCEDURE: laparoscopic cholecystectomy SURGEON: Steffanie Ellison [employer] DRIVER: Kinjal Goel ANESTHESIA TYPE: Local By Surgeon and General LMA/ETT Refer to Anesthesia Record ESTIMATED BLOOD LOSS: 100 PATHOLOGY: other (gallbladder) COMPLICATIONS: None Findings: Large gallstone. Bile contamination occurred during removal. Patient is on aspirin 325mg. Omental vessel bleeding occurred and was controlled with LigaSure. TXA was administered. Hemostasis assured. Procedure Description: This is a 59-year-old male who presented to the office with chronic abdominal symptoms and a large gallstone. The evaluation yielded a diagnosis of symptomatic cholelithiasis. Cholecystectomy was indicated. We discussed the procedure risks, benefits, alternatives, and expectations. All of the patient's questions were answered to their satisfaction. Informed consent was obtained and the patient was transferred to the operating room. He was placed supine on the operating table. SCDs were placed and all pressure points were padded appropriately. General anesthesia was induced. The abdomen was clipped prepped and draped in the usual sterile fashion. Timeout was performed. Local anesthetic was infiltrated underneath the umbilicus. An incision was made in the skin and the incision carried down to the umbilical stalk using cautery. The umbilical stalk was elevated using a Dian clamp and the fascia cleared of its fatty tissues. An incision was made in the fascia, and a Nicole clamp was used to enter the peritoneum. A finger was used to ensure no structures were adhered to the anterior abdominal wall. A Pedroza trocar was introduced and the abdomen was insufflated to 15 mmHg. Initial laparoscopy confirmed no injury to the intra-abdominal structures. 3 additional 5 mm ports were placed in the upper abdomen under direct visualization. Local anesthetic was infiltrated at each port site. The patient's head was elevated and she was rotated toward the left. The gallbladder was elevated. The gallbladder dome was grasped and retracted cephalad. Ometnal adhesions were taken down with LigaSure. The infundibulum was grasped and retracted laterally and a dissection in Calot's triangle was pursued with a [place] dissector and a suction tool. The gallbladder infundibulum was penetrated during dissection and bile spillage occurred. Two tubular structures were dissected free and skeletonized. A critical view was obtained and the gallbladder cystic duct and cystic artery were identified and confirmed. The cystic duct and cystic artery were clipped and transected with EndoShears. A posterior branch vein to the gallbladder was clipped. The gallbladder was then removed from the liver bed with LigaSure and cautery. It was placed into an Endo Catch bag and removed from the abdomen through the umbilicus. Umbilical skin and fascial incisions had to be extended to accommodate removal of the large gallstone. The liver bed was examined and hemostasis assured. Bleeding from an omental vessel was noted and controlled with LigaSure. A gram of TXA was given during the bleeding as the patient is on full strength aspirin and at risk for rebleeding. The patient taken out of reverse Trendelenburg position. The 5 mm ports were removed and the abdomen was desufflated. The umbilical trocar was removed. The umbilical fascia was closed with an 0 Vicryl suture in a [id number] stitch. The remainder of the local anesthetic was infiltrated into the umbilical fascia. The incisions were all closed with interrupted 4-0 Monocryl sutures in subcuticular fashion. The incisions were all washed and dried and Steri-Strips applied. The patient tolerated the procedure well. He extubated in the operating room and transferred to the recovery room in stable condition. There were no complications Date of Procedure: 06/29/25
--- NOTE | 2025-06-29 10:53 | W.ANESPOSTOP ---
Postoperative Evaluation Date, Time and Location Date Performed: 06/29/25 Time Performed: 10:54 Patient Location: Day Surgery Unit Vital Signs Most Recent Imported Vital Signs: Most Recent Vital Signs Temp Pulse Resp BP Pulse Ox 35.9 C L 62 16 131/79 97 06/29/25 10:45 06/29/25 10:45 06/29/25 10:45 06/29/25 10:45 06/29/25 10:45 Pain Score Most Recent Pain Score: Most Recent Pain Score Pain Level 0 06/29/25 10:45 Assessment Mental Status: Awake (Alert & Oriented to Patient Baseline) Airway and Respiratory Function: Patent airway with normal (patient baseline) respiratory exam Cardiovascular Function: Hemodynamically Stable Hydration Status: Adequately Hydrated Nausea & Vomiting: No Nausea or Vomiting Pain: Pt. Denies Any Pain Peripheral Nerve Block: Patient did not receive a nerve block
== END 2025-06-29 11:34 | disposition home or self-care (01) ==
PROVIDERS: PCP Family Medicine; Visit Provider Surgery
PROC: 0FT44ZZ Resection of Gallbladder, Percutaneous Endoscopic Approach (ICD-10-PCS; CPT 47562; principal; 2025-06-29 08:00)
DX: K80.10 Calculus of gallbladder with chronic cholecystitis without obstruction (principal)
CPT/HCPCS: 47562; 88304; J0690; J1100; J2003; J2250; J2405; J2704; J3010

== ENCOUNTER → 2025-10-01 14:11 | Outpatient (CLI) | payer OTHER, SELFPAY ==
--- NOTE | 2025-10-01 13:30 | DI.RAD_ITS ---
Exam(s) XR CHEST 2V PA LATERAL EXAM: XR CHEST 2V PA LATERAL CLINICAL HISTORY: dyspnea, hx asthma j45.40 TECHNIQUE: 2D digital imaging was performed. Two views. COMPARISON: No exams were available for comparison FINDINGS: HEART: Normal size. Aorta: Not dilated. PULMONARY VASCULATURE: Normal. MEDIASTINUM: Unremarkable. LUNGS: Increased interstitial markings, likely chronic. No focal infiltrate. PLEURAL SPACE: No pleural effusion or pneumothorax. BONE:Unremarkable for age. SOFT TISSUES: Unremarkable. IMPRESSION: No acute abnormality. DATA REPOSITORY: RADIATION DOSE DELIVERED:
== END ==
LOC: DI 14:12
PROVIDERS: PCP Nurse Practitioner; Visit Provider Internal Medicine Pulmonary Disease
DX: J45.40 Moderate persistent asthma, uncomplicated (principal)
CPT/HCPCS: 71046

== ENCOUNTER 2025-10-13 01:58 | Outpatient (CLI) | payer OTHER, SELFPAY ==
[2025-10-13] MEDS: Levalbuterol HFA 15 GM INH 4 PUFF IH (09:10)
[2025-10-13] MEDS: Inhaler, Assist Device 1 EACH MC (09:10)
--- NOTE | 2025-10-14 12:12 | W.PFT ---
Date of service: 10/13/25 Time of Service: 07:57 Pulmonary Function Test Result Indications: Asthma Impression 1. Good patient effort was noted. ATS standards for reproducibility were met. 2. Spirometry showed mild obstructive lung disease with an FEV1 of 94% (3.3 L) 3. Following the administration of a bronchodilator there was not a significant response 4. TLC was normal. No evidence of restrictive lung disease 5. DLCO was normal at 103%
== END 2025-10-13 01:59 | disposition home or self-care (01) ==
LOC: RT 01:58
PROVIDERS: PCP Nurse Practitioner; Visit Provider Internal Medicine Pulmonary Disease
DX: J45.40 Moderate persistent asthma, uncomplicated (principal); J33.9 Nasal polyp, unspecified; Z88.6 Allergy status to analgesic agent; J44.9 Chronic obstructive pulmonary disease, unspecified
CPT/HCPCS: 94060; 94726; 94729

== ENCOUNTER 2025-11-05 16:19 | Outpatient (REF) | payer OTHER, SELFPAY ==
[2025-11-05 17:38] LABS: Abs Immature Grans 0.03 10^3/uL (0.0-0.06); HCT 43.2 % (40.0-50.0); HGB 14.0 g/dL (13.5-17.5); Immature Grans % 0.4 %; MCH 30.8 pg (27.0-33.0); MCHC 32.4 % (32.0-36.0); MCV 95 fL (80-95); MPV 10.6 fL (8.0-11.0); Platelet Count 223 10^3/uL (130-400); RBC 4.55 10^6/uL (4.36-5.78); RDW 12.8 % (11.8-14.1); RDW-SD 44.8 fL; WBC 7.89 10^3/uL (4.4-10.8)
== END 2025-11-05 16:20 | disposition home or self-care (01) ==
LOC: LBN 16:19
PROVIDERS: PCP Nurse Practitioner; Visit Provider Internal Medicine Pulmonary Disease
DX: J45.40 Moderate persistent asthma, uncomplicated (principal)
CPT/HCPCS: 82785; 85025; 86255